=== PATIENT | female | born 1975 | race Caucasian/White ===

== ENCOUNTER 2017-11-20 10:31 | Emergency (ER) | payer SELFPAY ==
[~2017-11-20] VITALS: Ht 165.1 cm; Wt 56.8 kg
[2017-11-20] MEDS ORDERED: LEVETIRACETAM 500 MG TABLET PO SCH (11:30)
[2017-11-20] MEDS ORDERED: LEVETIRACETAM 500 MG TABLET ONE (11:45)
[2017-11-20] MEDS ORDERED: LEVE500T53 PO (11:53)
[2017-11-20 12:05] LABS: ANION GAP 14 mmol/L (5-15); CALCIUM 8.4 mg/dL (8.5-10.1); CHLORIDE 104 mmol/L (98-107); CREATININE 0.55 mg/dL (0.55-1.02)
[2017-11-20 12:18] LABS: MICROSCOPIC NOT IND
[2017-11-20 12:22] LABS: BASOPHILS # (AUTO) 0.02 x10^3/uL (0-0.1); BASOPHILS % (AUTO) 0 % (0-1); EOSINOPHILS # (AUTO) 0.17 x10^3/uL (0-0.4); EOSINOPHILS % (AUTO) 2 % (1-7); LYMPHOCYTES # (AUTO) 2.65 x10^3/uL (1-3.4); LYMPHOCYTES % (AUTO) 27 % (22-44); MD NO; MEAN CORPUSCULAR HEMOGLOBIN 21.9 pg (27.0-34.8); MEAN CORPUSCULAR HGB CONC 31.1 g/dL (32.4-35.8); MEAN CORPUSCULAR VOLUME 70.4 fL (80-100); MEAN PLATELET VOLUME 6.9 fL (7.4-10.4); MONOCYTES # (AUTO) 0.47 x10^3/uL (0.2-0.8); MONOCYTES % (AUTO) 5 % (2-9); NEUTROPHILS % (AUTO) 66 % (42-75); PLATELET COUNT 468 x10^3/uL (130-400); RED BLOOD COUNT 4.65 x10^6/uL (3.82-5.3); RED CELL DISTRIBUTION WIDTH 22.6 % (9.6-15.2)
[2017-11-20] MEDS ORDERED: SODIUM CHLORIDE 0.9%, 500ML IVBOLUS ONE (12:30)
[2017-11-20 12:32] LABS: AMPHETAMINE SCREEN, URINE Negative (Negative); BARBITURATE SCREEN, URINE Negative (Negative); BENZODIAZEPINE SCREEN, URINE Negative (Negative); CANNABINOID SCREEN, URINE Negative (Negative); COCAINE SCREEN, URINE Negative (Negative); METHADONE SCREEN, URINE Negative (Negative); OPIATE SCREEN, URINE Negative (Negative)
[2017-11-20 12:38] LABS: CULTURE INDICATED? NO
[2017-11-20 13:15] VITALS: BP 119/77
== END 2017-11-20 13:47 | disposition home or self-care (01) ==
LOC: ED 13:35
DX: G40.909 Epilepsy, unspecified, not intractable, without status epilepticus (principal); F10.229 Alcohol dependence with intoxication, unspecified; F17.200 Nicotine dependence, unspecified, uncomplicated; Z79.899 Other long term (current) drug therapy
CPT/HCPCS: 36415; 71045; 80048; 80307; 81003; 82040; 83605; 85025; 96360; 99285; J7040

== ENCOUNTER 2018-09-15 20:39 | Inpatient (IN) | payer MEDICAID ==
[~2018-09-15] VITALS: Ht 154.9 cm; Wt 55.3 kg
[~2018-09-15 20:39] MED LIST: LEVE500T53 PO
[2018-09-15] MEDS ORDERED: OMEP20TA62 PO (21:07)
[2018-09-15] MEDS ORDERED: ONDANSETRON 2MG/ML, 2ML IVPush ONE (21:30)
[2018-09-15] MEDS ORDERED: ONDANSETRON 2MG/ML, 2ML ONE (21:47)
[2018-09-15] MEDS ORDERED: MORPHINE SULFATE 4 MG/ML, 1ML ONE (21:51)
[2018-09-15] MEDS: MORPHINE SULFATE 4 MG/ML, 1ML IVPush PRN (21:54)
[2018-09-15 22:05] LABS: ALBUMIN 1.8 g/dL (3.4-5.0); CALCIUM 7.7 mg/dL (8.5-10.1)
[2018-09-15 22:07] LABS: MEAN CORPUSCULAR HEMOGLOBIN 33.8 pg (27.0-34.8); MEAN CORPUSCULAR HGB CONC 33.7 g/dL (32.4-35.8); MEAN CORPUSCULAR VOLUME 100.5 fL (80-100); MEAN PLATELET VOLUME 6.8 fL (7.4-10.4); PLATELET COUNT 209 x10^3/uL (130-400); RED BLOOD COUNT 2.15 x10^6/uL (3.82-5.3); RED CELL DISTRIBUTION WIDTH 16.4 % (9.6-15.2)
[2018-09-15 22:08] LABS: ALANINE AMINOTRANSFERASE 61 U/L (12-78); ALKALINE PHOSPHATASE 362 U/L (45-117); CREATININE 0.53 mg/dL (0.55-1.02); TOTAL PROTEIN 5.2 g/dL (6.4-8.2)
[2018-09-15 22:13] LABS: ANION GAP 10 mmol/L (5-15); CHLORIDE 89 mmol/L (98-107)
[2018-09-15 22:17] LABS: MD YES
[2018-09-15 22:23] LABS: HCG UR SG 1.024 (1.003-1.030)
[2018-09-15 22:27] LABS: BAND#(MANUAL) 0.15 x10^3/uL; BANDS%(MANUAL) 2 % (0-7); EOS#(MANUAL) 0.08 x10^3/uL (0.0-0.4); EOS% (MANUAL) 1 % (1-7); LYMPH#(MANUAL) 1.52 x10^3/uL (1-3.4); LYMPHS% (MANUAL) 20 % (22-44); MONOS#(MANUAL) 0.23 x10^3/uL (0.3-2.7); MONOS% (MANUAL) 3 % (2-9); SEG#(MANUAL) 5.62 x10^3/uL (1.8-6.8); SEGS% (MANUAL) 74 % (42-75)
[2018-09-15 22:28] LABS: ANISOCYTOSIS 1+
[2018-09-15 22:30] LABS: INTERNATIONAL NORMALIZED RATIO 1.4 (0.93-1.1); PROTHROMBIN TIME 14.5 Seconds (9.6-11.5)
[2018-09-15 22:32] LABS: POLYCHROMASIA 1+
[2018-09-15 22:34] LABS: AMPHETAMINE SCREEN, URINE Negative (Negative); BARBITURATE SCREEN, URINE Negative (Negative); BENZODIAZEPINE SCREEN, URINE Negative (Negative); CANNABINOID SCREEN, URINE Negative (Negative); COCAINE SCREEN, URINE Negative (Negative); METHADONE SCREEN, URINE Negative (Negative); OPIATE SCREEN, URINE Negative (Negative)
[2018-09-15 22:34] LABS: <PLATELET ESTIMATE> ADEQUATE; <PLT MORPHOLOGY> NORMAL PLT MORPH; TARGET CELLS 1+
[2018-09-15 22:46] LABS: CULTURE INDICATED? YES; MICROSCOPIC INDICATED
--- NOTE | 2018-09-15 22:51 | NUR ---
CRITICAL HEMOGLOBIN 7.3, POTASSIUM 2.4 REPORTED TO PHYSICIAN.
--- NOTE | 2018-09-15 22:57 | NUR ---
LATE ENTRY - PT ARRIVED BY EMS WITH ABDOMINAL PAIN RADIATING TO RIGHT SIDE AND DOWN LEGS. PT APPEARS JAUNDICE IN FACE AND SCLERA. WEAKNESS FOR PAST 2 WEEKS WHERE UNABLE TO AMBULATE.
[2018-09-15] MEDS ORDERED: POTASSIUM CHLORIDE 40 MEQ in SODIUM CHLORIDE 0.9% 500 ML IV ONE (23:00)
--- NOTE | 2018-09-15 23:13 | NUR ---
PT TO CT
--- NOTE | 2018-09-15 23:25 | NUR ---
BACK FROM CT
[2018-09-15] MEDS ORDERED: OMNIPAQUE 350 MG/ML, 100ML BOTTLE ONE (23:49)
--- NOTE | 2018-09-16 00:54 | NUR ---
PT RESTING. VSS. UPDATED ON POC.
[2018-09-16] MEDS ORDERED: MORPHINE SULFATE 4 MG/ML, 1ML ONE ×2 (00:57→09:46)
[2018-09-16] MEDS ORDERED: ONDANSETRON 2MG/ML, 2ML IVPush PRN ×2 (01:00→02:00)
[2018-09-16] MEDS ORDERED: MORPHINE SULFATE 4 MG/ML, 1ML IVPush PRN (01:00)
[2018-09-16] MEDS: MORPHINE SULFATE 4 MG/ML, 1ML IVPush PRN (01:01)
--- NOTE | 2018-09-16 01:50 | NUR ---
PT RESTING. VSS. UPDATED ON POC. REPORT CALLED.
[2018-09-16 02:29] VITALS: BP 93/64
[2018-09-16 02:38] VITALS: BP 93/64
[2018-09-16] MEDS ORDERED: CEFTRIAXONE PMX 2GM/50ML 50 ML IV SCH (03:00)
[2018-09-16] MEDS ORDERED: PANTOPRAZOLE 40 MG IV IVPush SCH (07:30)
[2018-09-16 07:31] LABS: MEAN CORPUSCULAR HEMOGLOBIN 32.7 pg (27.0-34.8); MEAN PLATELET VOLUME 6.9 fL (7.4-10.4); PLATELET COUNT 193 x10^3/uL (130-400); RED BLOOD COUNT 2.26 x10^6/uL (3.82-5.3); RED CELL DISTRIBUTION WIDTH 16.3 % (9.6-15.2)
[2018-09-16 07:57] LABS: ALANINE AMINOTRANSFERASE 61 U/L (12-78); ALBUMIN 1.8 g/dL (3.4-5.0); ANION GAP 9 mmol/L (5-15); CALCIUM 7.8 mg/dL (8.5-10.1); CHLORIDE 93 mmol/L (98-107); CREATININE 0.41 mg/dL (0.55-1.02)
[2018-09-16 08:00] LABS: ALKALINE PHOSPHATASE 354 U/L (45-117); BILIRUBIN,TOTAL 7.1 mg/dL (0.2-1.0); TOTAL PROTEIN 5.2 g/dL (6.4-8.2)
[2018-09-16 08:03] LABS: MD YES
[2018-09-16 08:06] LABS: BAND#(MANUAL) 0.49 x10^3/uL; BANDS%(MANUAL) 8 % (0-7); EOS#(MANUAL) 0.12 x10^3/uL (0.0-0.4); EOS% (MANUAL) 2 % (1-7); LYMPH#(MANUAL) 1.04 x10^3/uL (1-3.4); LYMPHS% (MANUAL) 17 % (22-44); MONOS#(MANUAL) 0.55 x10^3/uL (0.3-2.7); MONOS% (MANUAL) 9 % (2-9); SEGS% (MANUAL) 64 % (42-75)
[2018-09-16 08:07] LABS: ANISOCYTOSIS 1+; POLYCHROMASIA 1+
[2018-09-16 08:08] LABS: <PLATELET ESTIMATE> ADEQUATE; <PLT MORPHOLOGY> NORMAL PLT MORPH
[2018-09-16 08:13] VITALS: BP 91/62
[2018-09-16] MEDS ORDERED: POTASSIUM CHLORIDE 60 MEQ in SODIUM CHLORIDE 0.9% 1,000 ML IV ONE (09:00)
[2018-09-16] MEDS ORDERED: POTASSIUM CHLORIDE 20 MEQ TAB.ER.PRT PO ONE (09:30)
[2018-09-16] MEDS ORDERED: LIDOCAINE-MPF 1%, 5ML ONE (09:46)
[2018-09-16] MEDS: morphine SULFATE 10 MG/ML, 1ML IVPush PRN ×3 (09:57→21:26)
[2018-09-16] MEDS ORDERED: LORazepam 0.5MG TABLET PO PRN (11:00)
[2018-09-16] MEDS ORDERED: LORazepam 2 MG/ML, 1ML IV PRN ×5 (11:00)
[2018-09-16] MEDS ORDERED: LORazepam 1MG TABLET PO PRN ×4 (11:00)
[2018-09-16] MEDS: THIAMINE 100MG TABLET PO SCH (13:21)
[2018-09-16] MEDS: FOLIC ACID 1 MG TABLET PO SCH (13:25)
[2018-09-16 15:26] VITALS: BP 94/62
[2018-09-16] MEDS ORDERED: DEXTROSE 4 GM TAB.CHEW PO PRN (17:00)
[2018-09-16] MEDS ORDERED: DEXTROSE 50%, 50ML SYRINGE IVPush PRN (17:00)
[2018-09-16] MEDS ORDERED: GLUCAGON 1 MG IM PRN (17:00)
[2018-09-16 18:29] VITALS: BP 90/60
[2018-09-16] MEDS: SODIUM CHLORIDE FLUSH 10ML SYR IVF SCH (20:01)
[2018-09-17] VITALS (7 sets, daily range): BP systolic 89–106; BP diastolic 59–73
[2018-09-17] MEDS: morphine SULFATE 10 MG/ML, 1ML IVPush PRN ×3 (02:51→21:30)
[2018-09-17 03:06] LABS: CLOSTRIDIUM DIFFICILE ANTIGEN NEGATIVE; CLOSTRIDIUM DIFFICILE TOXIN NEGATIVE (Negative)
[2018-09-17] MEDS: CEFTRIAXONE PMX 2GM/50ML 50 ML IV SCH (05:51)
[2018-09-17 06:28] LABS: ANION GAP 6 mmol/L (5-15); CALCIUM 7.7 mg/dL (8.5-10.1); CHLORIDE 96 mmol/L (98-107); CREATININE 0.56 mg/dL (0.55-1.02)
[2018-09-17 06:29] LABS: MEAN CORPUSCULAR HEMOGLOBIN 33.8 pg (27.0-34.8); MEAN CORPUSCULAR HGB CONC 32.9 g/dL (32.4-35.8); MEAN CORPUSCULAR VOLUME 102.8 fL (80-100); MEAN PLATELET VOLUME 6.5 fL (7.4-10.4); PLATELET COUNT 169 x10^3/uL (130-400); RED BLOOD COUNT 2.02 x10^6/uL (3.82-5.3); RED CELL DISTRIBUTION WIDTH 17.1 % (9.6-15.2)
[2018-09-17] MEDS: PANTOPROZOLE 40MG TABLET PO SCH (06:35)
[2018-09-17 07:34] LABS: MD YES
[2018-09-17 07:40] LABS: METAMYELOCYTES# (MANUAL) 0.05 x10^3/uL (0-0); METAMYELOCYTES% (MANUAL) 1 % (0-1); MONOS#(MANUAL) 0.48 x10^3/uL (0.3-2.7); MONOS% (MANUAL) 9 % (2-9)
[2018-09-17 07:44] LABS: BAND#(MANUAL) 0.27 x10^3/uL; BANDS%(MANUAL) 5 % (0-7); REACTIVE LYMPHS # (MANUAL) 0.11 x10^3/uL (0-0); REACTIVE LYMPHS % (MANUAL) 2 % (0-0); SEG#(MANUAL) 3.45 x10^3/uL (1.8-6.8); SEGS% (MANUAL) 65 % (42-75)
[2018-09-17 07:45] LABS: ANISOCYTOSIS 1+; LYMPH#(MANUAL) 0.95 x10^3/uL (1-3.4); LYMPHS% (MANUAL) 18 % (22-44)
[2018-09-17 07:59] LABS: <PLATELET ESTIMATE> ADEQUATE
[2018-09-17 08:00] LABS: <PLT MORPHOLOGY> NORMAL PLT MORPH
[2018-09-17] MEDS: THIAMINE 100MG TABLET PO SCH (08:51)
[2018-09-17] MEDS: FOLIC ACID 1 MG TABLET PO SCH (08:51)
[2018-09-17] MEDS ORDERED: SODIUM CHLORIDE 0.9% 1,000 ML IV SCH (09:00)
[2018-09-17] MEDS: SODIUM CHLORIDE FLUSH 10ML SYR IVF SCH ×2 (09:00→21:31)
[2018-09-17 09:23] LABS: ALBUMIN 1.8 g/dL (3.4-5.0); BILIRUBIN, DIRECT 5.8 mg/dL (0.1-0.2)
[2018-09-17 09:26] LABS: BILIRUBIN,INDIRECT 0.9 mg/dL (0.0-2.0); BILIRUBIN,TOTAL 6.7 mg/dL (0.2-1.0); TOTAL PROTEIN 5.1 g/dL (6.4-8.2)
[2018-09-17] MEDS: ALBUMIN HUMAN 25% 100 ML IV SCH ×2 (12:30→21:30)
[2018-09-18 02:29] VITALS: BP 90/60
[2018-09-18] MEDS: morphine SULFATE 10 MG/ML, 1ML IVPush PRN ×2 (03:18→08:25)
[2018-09-18] MEDS: ALBUMIN HUMAN 25% 100 ML IV SCH ×4 (03:18→21:43)
[2018-09-18] MEDS: PANTOPROZOLE 40MG TABLET PO SCH (05:45)
[2018-09-18] MEDS: CEFTRIAXONE PMX 2GM/50ML 50 ML IV SCH (05:45)
[2018-09-18 06:35] LABS: ALBUMIN 2.9 g/dL (3.4-5.0); ANION GAP 7 mmol/L (5-15); CHLORIDE 101 mmol/L (98-107)
[2018-09-18 06:38] VITALS: BP 94/60
[2018-09-18 06:39] LABS: ALANINE AMINOTRANSFERASE 40 U/L (12-78); ALKALINE PHOSPHATASE 216 U/L (45-117); BILIRUBIN,TOTAL 7.4 mg/dL (0.2-1.0); CREATININE 0.38 mg/dL (0.55-1.02); TOTAL PROTEIN 5.3 g/dL (6.4-8.2)
[2018-09-18 07:54] LABS: MEAN CORPUSCULAR HEMOGLOBIN 32.5 pg (27.0-34.8); MEAN CORPUSCULAR HGB CONC 33.5 g/dL (32.4-35.8); MEAN CORPUSCULAR VOLUME 97.1 fL (80-100); MEAN PLATELET VOLUME 7.2 fL (7.4-10.4); PLATELET COUNT 142 x10^3/uL (130-400); RED BLOOD COUNT 2.31 x10^6/uL (3.82-5.3); RED CELL DISTRIBUTION WIDTH 23.4 % (9.6-15.2)
[2018-09-18] MEDS ORDERED: POTASSIUM CHLORIDE 20 MEQ TAB.ER.PRT PO ONE ×2 (08:00→11:00)
[2018-09-18 08:46] LABS: MD YES
[2018-09-18 08:51] LABS: BAND#(MANUAL) 0.33 x10^3/uL; BANDS%(MANUAL) 7 % (0-7); LYMPH#(MANUAL) 1.13 x10^3/uL (1-3.4); LYMPHS% (MANUAL) 24 % (22-44); METAMYELOCYTES# (MANUAL) 0.05 x10^3/uL (0-0); METAMYELOCYTES% (MANUAL) 1 % (0-1); MONOS#(MANUAL) 0.28 x10^3/uL (0.3-2.7); MONOS% (MANUAL) 6 % (2-9); NRBC % (MANUAL) 1 % (0-1); SEG#(MANUAL) 2.91 x10^3/uL (1.8-6.8); SEGS% (MANUAL) 62 % (42-75)
[2018-09-18 08:52] LABS: ANISOCYTOSIS 1+
[2018-09-18 08:53] LABS: <PLATELET ESTIMATE> ADEQUATE; <PLT MORPHOLOGY> NORMAL PLT MORPH
[2018-09-18] MEDS: THIAMINE 100MG TABLET PO SCH (09:27)
[2018-09-18] MEDS: NEUTRA PHOS K 250 MG TABLET PO SCH ×3 (09:27→21:42)
[2018-09-18] MEDS: FOLIC ACID 1 MG TABLET PO SCH (09:28)
[2018-09-18] MEDS: SODIUM CHLORIDE FLUSH 10ML SYR IVF SCH ×2 (09:45→21:44)
[2018-09-18] MEDS ORDERED: LIDODERM 5% PATCH TD SCH (12:00)
[2018-09-18 12:52] VITALS: BP 84/52
[2018-09-18 13:33] VITALS: BP 94/63
[2018-09-18] MEDS ORDERED: SODIUM PHOSPHATE 30 MMOL in SODIUM CHLORIDE 0.9% 500 ML IV ONE (14:00)
[2018-09-18] MEDS ORDERED: SODIUM PHOSPHATE 4 MEQ/ML IV SCH (14:00)
[2018-09-18 14:42] LABS: ANION GAP 8 mmol/L (5-15); CALCIUM 7.5 mg/dL (8.5-10.1); CHLORIDE 105 mmol/L (98-107); CREATININE 0.41 mg/dL (0.55-1.02)
[2018-09-18] MEDS: LIDODERM 5% PATCH TD PRN (18:07)
[2018-09-18 19:15] VITALS: BP 91/53
[2018-09-19] VITALS (9 sets, daily range): BP systolic 90–124; BP diastolic 53–84
[2018-09-19] MEDS: ALBUMIN HUMAN 25% 100 ML IV SCH ×2 (03:55→10:48)
[2018-09-19 05:27] LABS: CHLORIDE 104 mmol/L (98-107)
[2018-09-19 05:38] LABS: ALANINE AMINOTRANSFERASE 32 U/L (12-78); ALBUMIN 3.9 g/dL (3.4-5.0); ALKALINE PHOSPHATASE 163 U/L (45-117); ANION GAP 7 mmol/L (5-15); BILIRUBIN,TOTAL 5.9 mg/dL (0.2-1.0); CALCIUM 7.5 mg/dL (8.5-10.1); CREATININE 0.34 mg/dL (0.55-1.02); TOTAL PROTEIN 5.5 g/dL (6.4-8.2)
[2018-09-19] MEDS: CEFTRIAXONE PMX 2GM/50ML 50 ML IV SCH (05:38)
[2018-09-19 05:45] LABS: MEAN CORPUSCULAR HEMOGLOBIN 32.6 pg (27.0-34.8); MEAN CORPUSCULAR HGB CONC 33.8 g/dL (32.4-35.8); MEAN CORPUSCULAR VOLUME 96.5 fL (80-100); MEAN PLATELET VOLUME 7.2 fL (7.4-10.4); PLATELET COUNT 136 x10^3/uL (130-400); RED BLOOD COUNT 2.01 x10^6/uL (3.82-5.3); RED CELL DISTRIBUTION WIDTH 23.9 % (9.6-15.2)
[2018-09-19] MEDS: PANTOPROZOLE 40MG TABLET PO SCH (05:46)
[2018-09-19 06:26] LABS: MD YES
[2018-09-19 06:29] LABS: <PLATELET ESTIMATE> ADEQUATE; <PLT MORPHOLOGY> NORMAL PLT MORPH; ANISOCYTOSIS 1+; BAND#(MANUAL) 0.14 x10^3/uL; BANDS%(MANUAL) 3 % (0-7); EOS#(MANUAL) 0.09 x10^3/uL (0.0-0.4); EOS% (MANUAL) 2 % (1-7); LYMPHS% (MANUAL) 34 % (22-44); MONOS#(MANUAL) 0.28 x10^3/uL (0.3-2.7); MONOS% (MANUAL) 6 % (2-9); SEG#(MANUAL) 2.59 x10^3/uL (1.8-6.8); SEGS% (MANUAL) 55 % (42-75)
[2018-09-19 06:30] LABS: POLYCHROMASIA 1+
[2018-09-19] MEDS ORDERED: MAGNESIUM SULFATE PMX 2GM/50ML 50 ML IV ONE (08:00)
[2018-09-19] MEDS ORDERED: POTASSIUM CHLORIDE 20 MEQ TAB.ER.PRT PO ONE ×2 (08:00→11:00)
[2018-09-19] MEDS: NEUTRA PHOS K 250 MG TABLET PO SCH ×3 (08:17→20:49)
[2018-09-19] MEDS: THIAMINE 100MG TABLET PO SCH (08:17)
[2018-09-19] MEDS: SODIUM CHLORIDE FLUSH 10ML SYR IVF SCH ×2 (08:18→20:49)
[2018-09-19] MEDS: PANTOPRAZOLE 40 MG IV IVPush SCH ×2 (08:18→20:49)
[2018-09-19] MEDS: FOLIC ACID 1 MG TABLET PO SCH (08:18)
[2018-09-19] MEDS: BISACODYL 5 MG EC TABLET PO SCH (13:00)
[2018-09-19 13:50] LABS: OCCULT BLOOD NEGATIVE (NEGATIVE)
[2018-09-19] MEDS ORDERED: IRON SUCROSE COMPLEX 100MG/5ML IV ONE (16:00)
[2018-09-19] MEDS: LIDODERM 5% PATCH TD PRN (18:18)
[2018-09-19] MEDS ORDERED: MAGNESIUM HYDROXIDE 8%, 30ML UDC PO PRN (21:00)
[2018-09-20 00:42] VITALS: BP 121/81
[2018-09-20 05:19] LABS: MEAN CORPUSCULAR HEMOGLOBIN 32.1 pg (27.0-34.8); MEAN CORPUSCULAR HGB CONC 33.9 g/dL (32.4-35.8); MEAN CORPUSCULAR VOLUME 94.8 fL (80-100); PLATELET COUNT 148 x10^3/uL (130-400); RED BLOOD COUNT 3.32 x10^6/uL (3.82-5.3); RED CELL DISTRIBUTION WIDTH 22.4 % (9.6-15.2)
[2018-09-20 05:32] LABS: ALBUMIN 3.4 g/dL (3.4-5.0); ANION GAP 6 mmol/L (5-15); CALCIUM 8.1 mg/dL (8.5-10.1); CHLORIDE 108 mmol/L (98-107); CREATININE 0.33 mg/dL (0.55-1.02)
[2018-09-20 06:26] LABS: MD YES
[2018-09-20 06:29] LABS: <PLATELET ESTIMATE> ADEQUATE; <PLT MORPHOLOGY> NORMAL PLT MORPH; ANISOCYTOSIS 1+; BAND#(MANUAL) 0.28 x10^3/uL; BANDS%(MANUAL) 4 % (0-7); LYMPH#(MANUAL) 1.14 x10^3/uL (1-3.4); LYMPHS% (MANUAL) 16 % (22-44); METAMYELOCYTES# (MANUAL) 0.07 x10^3/uL (0-0); METAMYELOCYTES% (MANUAL) 1 % (0-1); MONOS#(MANUAL) 0.78 x10^3/uL (0.3-2.7); MONOS% (MANUAL) 11 % (2-9); POLYCHROMASIA 1+; SEG#(MANUAL) 4.83 x10^3/uL (1.8-6.8); SEGS% (MANUAL) 68 % (42-75)
[2018-09-20] MEDS: CEFTRIAXONE PMX 2GM/50ML 50 ML IV SCH (06:36)
[2018-09-20 07:42] VITALS: BP 113/76
[2018-09-20] MEDS: THIAMINE 100MG TABLET PO SCH (09:32)
[2018-09-20] MEDS: FOLIC ACID 1 MG TABLET PO SCH (09:32)
[2018-09-20] MEDS: PANTOPRAZOLE 40 MG IV IVPush SCH (09:32)
[2018-09-20] MEDS: SODIUM CHLORIDE FLUSH 10ML SYR IVF SCH (09:34)
[2018-09-20] MEDS: BISACODYL 5 MG EC TABLET PO SCH (09:34)
[2018-09-20] MEDS ORDERED: FOLI-17 PO (09:36)
[2018-09-20] MEDS ORDERED: THIA100T67 PO (09:36)
[2018-09-20] MEDS ORDERED: FERR324T18 PO (09:37)
[2018-09-20] MEDS ORDERED: CEFD300C37 PO (09:38)
[2018-09-20 12:38] VITALS: BP 111/77
== END 2018-09-20 17:45 | disposition home or self-care (01) | DRG 441 ==
LOC: ED 22:10 → EDIP 09-16 00:32 → 4EST 09-16 02:28
PROVIDERS: ADMIT Internal Medicine; ATTEND Internal Medicine
PROC: 0W9G3ZZ Drainage of Peritoneal Cavity, Percutaneous Approach (ICD-10-PCS; 2018-09-16)
PROC: 30233N1 Transfusion of Nonautologous Red Blood Cells into Peripheral Vein, Percutaneous Approach (ICD-10-PCS; principal; 2018-09-17)
DX: K72.90 Hepatic failure, unspecified without coma (principal); E43 Unspecified severe protein-calorie malnutrition; D68.9 Coagulation defect, unspecified; N39.0 Urinary tract infection, site not specified; K70.11 Alcoholic hepatitis with ascites; D53.1 Other megaloblastic anemias, not elsewhere classified; K74.60 Unspecified cirrhosis of liver; D50.9 Iron deficiency anemia, unspecified; D63.8 Anemia in other chronic diseases classified elsewhere; D72.825 Bandemia; E11.9 Type 2 diabetes mellitus without complications; E87.6 Hypokalemia; F17.210 Nicotine dependence, cigarettes, uncomplicated; G40.909 Epilepsy, unspecified, not intractable, without status epilepticus; K76.0 Fatty (change of) liver, not elsewhere classified; Z87.11 Personal history of peptic ulcer disease; Z90.710 Acquired absence of both cervix and uterus; Z90.49 Acquired absence of other specified parts of digestive tract; Z68.23 Body mass index [BMI] 23.0-23.9, adult
CPT/HCPCS: 36415; 36430; 49083; 74177; 74181; 80048; 80053; 80074; 80076; 80307; 81001; 81025; 82040; 82042; 82105; 82140; 82272; 82728; 82945; 83540; 83550; 83690; 83735; 84100; 84157; 84443; 85014; 85018; 85025; 85610; 85730; 86850; 86900; 86923; 87040; 87070; 87077; 87086; 87186; 87205; 87324; 89051; 96374; 96375; 96376; 99291; G0378; J0696; J1756; J2405; J3480; P9047; Q9967; C9113; J2270; J3475; J7030; J7040; P9016